=== PATIENT | female | born 1975 | race Caucasian/White ===

== ENCOUNTER → 2023-03-30 | Outpatient (CLI) | payer OTHER ==
--- NOTE | 2023-03-30 10:34 | US ---
EXAMINATION TYPE: US renal artery duplex complete DATE OF EXAM: 03/30/2023 COMPARISON: NONE CLINICAL INDICATION: Female, 47 years old with history of I10 HYPERTENSION x ? years, started medicat ions about 1 month ago with no change in HTN; Smoker MEASUREMENTS: Aorta: 78.5 cm/s peak systolic velocity or RENAL SIZE: Right Kidney: 11.3 x 4.3 x 5.0 Left Kidney: 9.9 x 4.7 x 5.3 No hydronephrosis. Right Kidney: Prominent renal pelvis Left Kidney: WNL Abd Aorta: WNL RESISTANCE INDEX Right: 0.80 Left: 0.55 RA/AO RATIO (< 3.5 ) Right: 2.2 Left: 1.0 RENAL ARTERY VELOCITY ( < 180 cm/s) Right: 170 Left: 76 [employer] Rep[employer] Bus Notes: Incidental - gallstones. Also, proximal abdominal aorta is ectatic at 2.6 cm. IMPRESSION: 1. The right renal artery peak systolic velocity is upper limits of normal and the renal artery to ao rtic ratio is also asymmetrically higher on the right. However, values still fall within acceptable l imits. No Doppler evidence for renal artery stenosis on either side. 2. Incidental cholelithiasis.
--- NOTE | 2023-03-30 11:19 | CA ---
Transthoracic Echo Report Name: María Elena Mohr Age: 47 Gender: F : 1975 Exam Date: 03/30/2023 09:04 Exam Location: [facility] Ht (in): 60 Wt (lb): 150 Ordering Physician: Pb Barraza MD Attending/Referring Phys: Pb Barraza MD Opal Polisher Omaira Garza [facility] Procedure CPT: Indications: I10 HTN Cardiac Hx: Technical Quality: Fair Contrast 1: Total Dose (mL): Contrast 2: Total Dose (mL): MEASUREMENTS (Male / Female) Normal Values 2D ECHO LV Diastolic Diameter PLAX 3.2 cm 4.2 - 5.9 / 3.9 - 5.3 cm LV Systolic Diameter PLAX 2.1 cm IVS Diastolic Thickness 1.6 cm 0.6 - 1.0 / 0.6 - 0.9 cm LVPW Diastolic Thickness 1.9 cm 0.6 - 1.0 / 0.6 - 0.9 cm LV Relative Wall Thickness 1.1 RV Internal Dim ED PLAX 2.8 cm LA Volume 46.2 cm??? 18 - 58 / 22 - 52 cm??? LA Volume Index 26.8 cm???/m??? 16 - 28 cm???/m??? M-MODE Aortic Root Diameter MM 2.8 cm LA Systolic Diameter MM 3.4 cm LA Ao Ratio MM 1.2 AV Cusp Separation MM 1.4 cm DOPPLER AV Peak Velocity 158.5 cm/s AV Peak Gradient 10.0 mmHg AV Mean Velocity 122.9 cm/s AV Mean Gradient 6.3 mmHg AV Velocity Time Integral 31.3 cm LVOT Peak Velocity 107.4 cm/s LVOT Peak Gradient 4.6 mmHg LVOT Velocity Time Integral 20.3 cm MV Area PHT 2.6 cm??? Mitral E Point Velocity 46.4 cm/s Mitral A Point Velocity 81.5 cm/s Mitral E to A Ratio 0.6 MV Deceleration Time 293.9 ms MV E' Velocity 8.8 cm/s Mitral E to MV E' Ratio 5.3 TR Peak Velocity 234.1 cm/s TR Peak Gradient 21.9 mmHg Right Ventricular Systolic Press 26.0 mmHg FINDINGS Left Ventricle Moderately increased left ventricular wall thickness. Left ventricular cavity size normal. Normal left ventricular systolic function with no obvious regional wall motion abnormalities. Left ventricular ejection fraction is estimated at 55-60 %. Right Ventricle Normal right ventricular size and function. Right ventricular systolic pressure within normal limits. Right Atrium Normal right atrial size. Left Atrium Normal left atrial size. Mitral Valve Structurally normal mitral valve. No mitral stenosis, regurgitation or prolapse. Aortic Valve Trileaflet aortic valve. No aortic valve stenosis or regurgitation. Tricuspid Valve Structurally normal tricuspid valve. Mild tricuspid regurgitation. Pulmonic Valve Structurally normal pulmonic valve. Pericardium No pericardial effusion. Aorta Normal size aortic root and proximal ascending aorta. CONCLUSIONS Moderate increased left ventricular wall thickness Left ventricular ejection fraction 55-60% RVSP 26 No mitral regurgitation Mild tricuspid regurgitation Previewed by: Dr. Ezra Alvarez DO (Electronically Signed) Final Date: 30 March 2023 11:18
== END | disposition home or self-care (01) ==
LOC: RADUSWWP 07:02
PROVIDERS: ATTEND Family Medicine
DX: I10 Essential (primary) hypertension (principal); I07.1 Rheumatic tricuspid insufficiency; F17.200 Nicotine dependence, unspecified, uncomplicated
CPT/HCPCS: 93306; 93975

== ENCOUNTER → 2023-08-01 | Outpatient (CLI) | payer OTHER ==
[2023-08-01 15:49] VITALS: BP 157/84; PULSE 72; RESP 12; TEMP 98.2
--- NOTE | 2023-08-01 16:13 | P.SLEEP ---
History of Present Illness H&P Date: 08/01/23 47-year-old female patient, having difficulty with blood pressure control, referred to me for sleep apnea evaluation. She is currently on losartan 25 mg p.o. daily. Her BP is 157/84. Cardiac rhythm is sinus. She is going through a lot of stress. 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 She is also going through a divorce. She has lost around 40 pounds over the past 9 months. Limited snoring. No witnessed apneas. No major hypersomnia or sleepiness. She has sleep onset insomnia takes around 30 minutes to fall asleep. She goes to bed around midnight and wakes up 7:00 in the morning. No naps during the day. No episode of choking or gasping for air at nighttime. No grinding of the teeth. No restlessness in lower extremities. No sleepwalking or sleep talking. She is a nose breather. No nighttime palpitations or heartburn. No sleep paralysis. Not a sedations. No cataplexy. No seizure disorder. Her current [place] score is at support. No other comorbidities other than the ones mentioned above. Review of Systems All systems: negative Constitutional: Denies chills, Denies fever Eyes: denies blurred vision, denies pain Ears, nose, mouth and throat: Denies headache, Denies sore throat Cardiovascular: Denies chest pain, Denies shortness of breath Respiratory: Denies cough Gastrointestinal: Denies abdominal pain, Denies diarrhea, Denies nausea, Denies vomiting Genitourinary: Denies dysuria, Denies hematuria Musculoskeletal: Denies myalgias Integumentary: Denies pruritus, Denies rash Neurological: Denies numbness, Denies weakness Psychiatric: Denies anxiety, Denies depression Endocrine: Denies fatigue, Denies weight change Past Medical History Past Medical History: Hypertension History of Any Multi-Drug Resistant Organisms: None Reported Past Surgical History: Orthopedic Surgery Additional Past Surgical History / Comment(s): hand surgery Past Anesthesia/Blood Transfusion Reactions: No Reported Reaction Past Psychological History: No Psychological Hx Reported Smoking Status: Current every day smoker Past Alcohol Use History: Occasional Past Drug Use History: None Reported Medications and Allergies Home Medications Medication Instructions Recorded Confirmed Type Losartan [Cozaar] 25 mg PO DAILY 08/01/23 08/01/23 History Physical Exam Vitals: Vital Signs Temp Pulse Resp BP Pulse Ox 08/01/23 15:47 98.2 F 72 12 157/84 100 The patient appeared well nourished and normally developed. Vital signs as documented. Head exam is unremarkable. No scleral icterus or corneal arcus noted. Neck is without jugular venous distension, thyromegaly, or carotid bruits. The patient has a Mallampati class IV with a slight overbite. Carotid upstrokes are brisk bilaterally. Lungs are clear to auscultation and percussion. Cardiac exam reveals the PMI to be normally sized and situated. Rhythm is regular. First and second heart sounds normal. No murmurs, rubs or gallops. Abdominal exam reveals normal bowel sounds, no masses, no organomegaly and no aortic enlargement. Extremities are nonedematous and both femoral and pedal pulses are normal. Examination of the skin revealed no evidence of significant rashes, suspicious appearing nevi or other concerning lesions. Neurologically, the patient is awake and alert and the patient does not have any focal neurological deficit. Cranial nerves are essentially intact. Assessment and Plan Plan: Soft snoring, would have Mallampati class IV. Body mass index is 23.2 with significant weight loss over the past 9 months in order of 30 pounds. Limited hypersomnia with an [place] score of 4 Hypertension Social stressors as mentioned above Plan Low clinical suspicion for obstructive sleep apnea. Will do a home sleep study to screen this patient for an underlying sleep breathing disorder. Will get back to the patient if further treatment is needed. Improvement in sleep hygiene measures Relaxation techniques Maintain regular sleep schedule Will continue to follow Sleep Note - Sleep Data ESS Total: 4 - Sleep Note Sleep Note: Temperature: 98.2 F Pulse Rate: 72 Respiratory Rate: 12 Blood Pressure: 157/84 SpO2: 100 Height: Weight: BMI: Neck Circumference: 15.2
== END ==
LOC: 3 N SLEEP 15:15
PROVIDERS: ATTEND Internal Medicine Critical Care Medicine
DX: R06.83 Snoring (principal); G47.10 Hypersomnia, unspecified; I10 Essential (primary) hypertension; F43.9 Reaction to severe stress, unspecified; F17.200 Nicotine dependence, unspecified, uncomplicated; Z79.899 Other long term (current) drug therapy
CPT/HCPCS: 99211

== ENCOUNTER → 2023-08-08 | Outpatient (CLI) | payer OTHER ==
--- NOTE | 2023-08-18 22:12 | P.PCN ---
Date of Procedure: 09/07/23 Operative Findings: Home sleep study testing Date of service is 08/08/2023 Present history 47-year-old female patient, having difficulty with blood pressure control, referred to me for sleep apnea evaluation. She is currently on losartan 25 mg p.o. daily. Her BP is 157/84. Cardiac rhythm is sinus. She is going through a lot of stress. 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 She is also going through a divorce. She has lost around 40 pounds over the past 9 months. Limited snoring. No witnessed apneas. No major hypersomnia or sleepiness. She has sleep onset insomnia takes around 30 minutes to fall asleep. She goes to bed around midnight and wakes up 7:00 in the morning. No naps during the day. No episode of choking or gasping for air at nighttime. No grinding of the teeth. No restlessness in lower extremities. No sleepwalking or sleep talking. She is a nose breather. No nighttime palpitations or heartburn. No sleep paralysis. Not a sedations. No cataplexy. No seizure disorder. Her current [place] score is at support. No other comorbidities other than the ones mentioned above. Technical description This is a type III home sleep study. The [employer] system was used to complete this home sleep study. The total recording duration was 6 hours and 56 minutes. The study started at 1:46 AM and ended at 8:42 AM. There was 6 hours and 49 minutes of flow monitoring and 6 hours and 41 minutes of oxygen saturati on monitoring. This was an adequate study Results The respiratory analysis showed a total of 0 obstructive apneas and 10 obstructive hypopneas. The resulting AHI was 1.5 Oxygenation analysis No significant nocturnal oxygen saturations encountered and the patient's pulse ox remained above 90% throughout the sleep study. Average pulse ox during sleep was 92% Cardiac summary Average heart rate was 58 with a minimum heart rate of 41 and a maximum heart rate of 101 Assessment Primary snoring, no evidence of any sleep breathing disorder. Hypertension Plan This is a negative study. The patient's hypertension is not related to any formal sleep breathing disorder. The patient will be reassured. Follow-up with the primary care.
== END | disposition home or self-care (01) ==
LOC: 3 N SLEEP 16:49
PROVIDERS: ATTEND Internal Medicine Critical Care Medicine
DX: G47.10 Hypersomnia, unspecified (principal); R06.83 Snoring; I10 Essential (primary) hypertension; Z79.899 Other long term (current) drug therapy